=== PATIENT | female | born 1965 | race Two or more races ===

== ENCOUNTER → 2016-09-06 | Outpatient (CLI) | payer OTHER ==
[~2016-09-06] MED LIST: JENC0.35 PO; LISI-538 PO; hydrochlorothiazide OR
[2016-09-06 16:31] LABS: FREE T4 1.31 NG/DL (0.76-1.46)
== END ==
LOC: M LAB 15:43
PROVIDERS: ATTEND Hospitalist
DX: I15.9 Secondary hypertension, unspecified (principal)

== ENCOUNTER → 2016-11-09 | Outpatient (CLI) | payer OTHER ==
--- NOTE | 2016-11-10 07:27 | REP ---
THYROID ULTRASOUND: Real-time sonographic evaluation of the thyroid performed. Patient has had a prior left thyroidectomy in 2016. Right lobe measures 4.8 x 1.9 x 1.2 cm. Multiple tiny cysts are seen in the right lobe, approximately four, with maximum diameter of 3 mm. No solid nodule is seen. IMPRESSION: Status post left thyroidectomy. Approximately four tiny cysts are seen in the lower right thyroid. Signed by Usama Connor MD 11/10/2016 07:44 P
== END ==
LOC: M RAD 15:25
PROVIDERS: ATTEND Physician Assistant Medical
DX: E04.1 Nontoxic single thyroid nodule (principal); C73 Malignant neoplasm of thyroid gland

== ENCOUNTER → 2016-11-09 | Outpatient (CLI) | payer OTHER ==
[2016-11-09 16:21] LABS: FREE T4 1.05 NG/DL (0.76-1.46)
== END ==
LOC: M LAB 15:37
PROVIDERS: ATTEND Family Medicine
DX: E89.0 Postprocedural hypothyroidism (principal)

== ENCOUNTER → 2016-11-12 | Outpatient (CLI) | payer OTHER | LOC: M RAD 15:50 | PROVIDERS: ATTEND Family Medicine | DX: Z12.31 Encounter for screening mammogram for malignant neoplasm of breast (principal); Z53.9 Procedure and treatment not carried out, unspecified reason ==

== ENCOUNTER → 2017-07-10 | Outpatient (CLI) | payer OTHER | LOC: M RAD 16:37 | DX: E04.1 Nontoxic single thyroid nodule (principal) | CPT/HCPCS: 76536 ==

== ENCOUNTER → 2017-07-30 | Outpatient (CLI) | payer OTHER ==
[2017-07-30 17:13] LABS: FREE T4 1.12 NG/DL (0.76-1.46)
== END ==
LOC: M LAB 16:17
DX: Z85.850 Personal history of malignant neoplasm of thyroid (principal)
CPT/HCPCS: 84443

== ENCOUNTER → 2017-09-02 | Outpatient (CLI) | payer OTHER ==
[2017-09-02 14:53] LABS: HEMATOCRIT 37.9 % (36.0-47.0); HEMOGLOBIN 11.7 g/dl (12.0-16.0); MEAN CORPUSCULAR HGB CONC 30.9 g/dl (32.0-36.5); MEAN CORPUSCULAR VOLUME 77.7 fl (80.0-96.0); PLATELET COUNT, AUTOMATED 356 10^3/uL (150-450); RED BLOOD COUNT 4.88 10^6/uL (4.00-5.40); RED CELL DISTRIBUTION WIDTH 16.4 % (11.5-14.5); WHITE BLOOD COUNT 9.6 10^3/uL (4.0-10.0)
[2017-09-02 15:16] LABS: CONTROL LINE HCG INT CTR LINE PRESENT; HCG, SERUM QUALITATIVE NEGATIVE (NEGATIVE)
[2017-09-02 15:32] LABS: FOLLICLE STIMULATING HORMONE 11.7 mIU/mL; LUTEINIZING HORMONE 15.7 mIU/mL
== END ==
LOC: M LAB 14:35
DX: N85.2 Hypertrophy of uterus (principal)
CPT/HCPCS: 76856

== ENCOUNTER → 2017-11-19 | Outpatient (REF) | payer OTHER ==
[2017-11-21 14:13] LABS: HPV HYBRID CAPTURE II Negative (Negative)
== END ==
LOC: M LAB REF 19:19
DX: Z01.419 Encounter for gynecological examination (general) (routine) without abnormal findings (principal); Z11.51 Encounter for screening for human papillomavirus (HPV)

== ENCOUNTER → 2017-12-04 | Outpatient (REF) | payer OTHER | LOC: M SFHCLERA 13:37 | DX: L72.0 Epidermal cyst (principal); L82.1 Other seborrheic keratosis ==

== ENCOUNTER → 2017-12-25 | Outpatient (CLI) | payer OTHER | LOC: M RAD 12:28 | DX: E04.1 Nontoxic single thyroid nodule (principal); Z85.850 Personal history of malignant neoplasm of thyroid | CPT/HCPCS: 76536 ==

== ENCOUNTER → 2018-01-06 | Outpatient (CLI) | payer OTHER | LOC: M LAB 08:26 | DX: E89.0 Postprocedural hypothyroidism (principal) | CPT/HCPCS: 84443 ==

== ENCOUNTER → 2018-01-08 | Outpatient (CLI) | payer OTHER | LOC: M RAD 07:51 | DX: Z12.31 Encounter for screening mammogram for malignant neoplasm of breast (principal) | CPT/HCPCS: 77067 ==

== ENCOUNTER → 2018-01-08 | Outpatient (REF) | payer OTHER | LOC: M SFHCPLAZ 15:19 | DX: L02.212 Cutaneous abscess of back [any part, except buttock and flank] (principal) | CPT/HCPCS: 87077 ==

== ENCOUNTER → 2018-06-09 | Outpatient (CLI) | payer BC, SELFPAY | LOC: M RAD 17:42 | DX: Z85.850 Personal history of malignant neoplasm of thyroid (principal); E04.2 Nontoxic multinodular goiter | CPT/HCPCS: 76536 ==

== ENCOUNTER 2018-06-25 14:56 | Inpatient (IN) | payer BC ==
[~2018-06-25] VITALS: Ht 170.2 cm; Wt 76.8 kg
[2018-06-25] MEDS ORDERED: LEVO100T5 PO (15:09)
[2018-06-25] MEDS ORDERED: TRAZ-163 PO (15:09)
[2018-06-25] MEDS ORDERED: CHLO125TA (15:56)
--- NOTE | 2018-06-25 18:19 | REP ---
Clinical: Acute cerebrovascular accident . Comparison: 10/12/2015 . Findings: The ventricles, sulci, and cisterns are normal in position and appearance. Connor-white differentiation is maintained. No acute intracranial hemorrhage, mass/mass effect, pathology or trauma/injury. No evidence for acute infarction. No extra-axial fluid collection. Calvarium is intact. Paranasal sinuses and mastoid air cells are clear. Impression: Normal noncontrast head CT. No evidence for acute intracranial pathology or trauma/injury. Electronically Signed by Kevin Mcgrath MD 06/25/2018 06:11 P
--- NOTE | 2018-06-25 18:22 | REP ---
Clinical: Neck pain. Cerebrovascular accident. Technique: Axial noncontrast images from the skull base to the thoracic inlet with coronal and sagittal re-formations. Findings: Moderate multilevel degenerative changes include subtle end plate sclerosis with anterior osteophytes and minimal disc space narrowing predominantly involving C4-5 and C5-6. Alignment and lordosis maintained. No acute fracture / compression injury or subluxation. Posterior elements and spinous processes are intact. Spinal canal is patent. Paravertebral soft tissues are unremarkable. The patient appears to be status post left thyroidectomy. Impression: Moderate multilevel degenerative changes. No acute cervical spine pathology or trauma/injury. Electronically Signed by Kevin Mcgrath MD 06/25/2018 06:13 P
[2018-06-25 18:23] LABS: BASO % 0.5 % (0.0-1.0); EOS # 0.1 10^3/uL (0.0-0.50); EOS % 0.9 % (0.0-3.0); HEMATOCRIT 44.7 % (36.0-47.0); HEMOGLOBIN 14.5 g/dl (12.0-15.5); LYMPH % 34.7 % (24.0-44.0); MEAN CORPUSCULAR HEMOGLOBIN 27.4 pg (27.0-33.0); MEAN CORPUSCULAR HGB CONC 32.4 g/dl (32.0-36.5); MEAN CORPUSCULAR VOLUME 84.5 fl (80.0-96.0); MONO # 0.6 10^3/uL (0.0-0.8); MONO % 7.3 % (0.0-5.0); NEUTROPHILS # 4.8 10^3/uL (1.8-7.7); NEUTROPHILS % 56.2 % (36.0-66.0); PLATELET COUNT, AUTOMATED 327 10^3/uL (150-450); RED BLOOD COUNT 5.29 10^6/uL (4.00-5.40); WHITE BLOOD COUNT 8.5 10^3/uL (4.0-10.0)
[2018-06-25 18:41] LABS: INR 0.94; PARTIAL THROMBOPLASTIN TIME 26.2 SECONDS (25.4-37.6); PROTHROMBIN TIME 12.6 SECONDS (12.1-14.4)
[2018-06-25 18:58] LABS: BLOOD UREA NITROGEN 11 MG/DL (7-18); CALCIUM LEVEL 9.4 MG/DL (8.5-10.1); CARBON DIOXIDE LEVEL 30 MEQ/L (21-32); CHLORIDE LEVEL 101 MEQ/L (98-107); CPK CREATINE PHOSPHOKINASE 110 U/L (26-192); CREATININE FOR GFR 0.88 MG/DL (0.55-1.30); FREE T4 1.21 NG/DL (0.76-1.46); GLOMERULAR FILTRATION RATE > 60.0 (>51); GLUCOSE, FASTING 84 MG/DL (70-100); POTASSIUM SERUM 3.5 MEQ/L (3.5-5.1); SODIUM LEVEL 138 MEQ/L (136-145); TROPONIN I 0.05 NG/ML (< 0.10)
[2018-06-25] MEDS ORDERED: CHLO25TA PO (20:04)
[2018-06-25] MEDS ORDERED: REFR0.5D8 OU (20:16)
[2018-06-25] MEDS: traZODone 50 MG TAB PO SCH (21:00)
[2018-06-25] MEDS ORDERED: SIMVASTATIN 20 MG TAB PO ONE (21:15)
[2018-06-25] MEDS ORDERED: ASPIRIN 81 MG CHEW TABLET PO ONE (21:15)
[2018-06-25] MEDS ORDERED: BISACODYL 5 MG TAB PO PRN (21:45)
[2018-06-25] MEDS ORDERED: ACETAMINOPHEN TAB 650MG DOSE (2X325MG) PO PRN (21:45)
[2018-06-25] MEDS ORDERED: BISACODYL 10 MG SUPP PR PRN (21:45)
--- NOTE | 2018-06-25 22:14 | HPEPDOC ---
[facility] Medical History & Physical Date of Admission Jun 25, 2018 Attending Physician: FLORECITA BUCIO MD History and Physical CHIEF COMPLAINT: [Uncontrollable blood pressure, left arm paresthesia and blurring vision for 5 days] HISTORY OF PRESENT ILLNESS: [52-year-old female with significant past history of hypertension, hypothyroidism, anxiety and insomnia, migraine who presented complaining of uncontrolled blood pressure systolic 140 (unusual for her), left arm paresthesia and blurry vision described as being foggy for the past 5 days. Patient states that she had intermittent nausea without vomiting on past Saturday and today. Patient admits to eating a ham for holiday. Patients pleural effusion slowly resolving. Neck pain and left arm paresthesias still present. Blood pressure slowly improved in the emergency room. Patient was evaluated in emergency room, ER physician suspected TIA CVA therefore consulted Dr. Coronado. Neurologist recommended admission for aspirin, statin, further evaluation and MRI of the brain and neck. Patient being admitted for further evaluation for TIA/CVA. But suspect patient may have hypertensive urgency. Review system: 12 point review systems negative other than those described in HPI Past medical history: Hypertension, hypothyroidism, anxiety/insomnia, migraine, neck pain Surgical history: Partial thyroidectomy, 3, finger surgery with screw placement Social history: Patients most recent yesterday, drinks occasionally last drink was last week, denies any drug abuse Family medical history: Does not know anything about her fathers medical history, mother has stomach cancer history, siblings relatively healthy up of the kidney disease ALLERGIES: Please see below. HOME MEDICATIONS: Please see below. PHYSICAL EXAMINATION: VITAL SIGNS: Please see below GENERAL APPEARANCE: Resting comfortably HEENT: Normocephalic, PERRLA, Mucous moist, CARDIOVASCULAR: S1,S2, pulse present, regularly, regular, no obvious murmur LUNGS: Equal air entry b/l, no wheezes or crackle ABDOMEN: Soft, BS present, no tenderness, no guarding GENITOURINARY: No [place] EXTREMITIES: B/L no edema, capillary refill present SKIN: Warm, No fever NEUROLOGICAL: Cranial nerves grossly intact, Patient awake alert oriented, follows command without difficulty, answers multiple questions difficulty, normal gaze, no visual loss but complains of foggy vision that is improving, no facial paralysis, no upper and lower extremity motor drift bilaterally, no ataxia, sensory intact, no aphasia, no dysarthria and no neglect PSYCHIATRIC: Normal mood and affect for current situation, family at the bedside LABORATORY DATA: See below. IMAGING: [CT of the head: Normal noncontrast head CT. No evidence for acute intracranial pathology or trauma/injury. CT of cervical spine: Moderate multilevel degenerative changes: No acute cervical spine pathology or trauma/injury. CXR: No cardiac megaly, and no consolidation or infiltrate. Please follow up with official reading by radiology.] MICROBIOLOGY: Please see below. Assessment and plan: 52-year-old female was in a few past medical history of hypertension, hypothyroidism, anxiety/insomnia, migraine who presents complaining of 5 days worth of elevated blood pressure, left arm paresthesia and blurred vision. ER felt patient may have TIA/CVA and Dr. Coronado was consulted and recommended admission for further evaluation and monitoring along with aspirin and statin therapy. Patients foggy vision resolving improving with blood pressure improvement. Patient admitted for hypertensive urgency and TIA/CVA workup. Hypertension urgency Patient symptom such as blurry vision improving with better blood pressure control, and patient admits increase in salt consumption during the holiday Judiciously resume antihypertensive medication Further workup for TIA and CVA as below, and if MRI negative for ischemic stroke considering utilizing IV Lasix for better blood pressure control Possible TIA/CVA Neuro checks Aspirin, statin Lipid profile Telemetry, serial cardiac enzyme, echocardiogram MRI and MRA of the brain and the neck Further recommendation as per Dr. Coronado Blood pressure monitoring, if MRI positive for ischemic stroke hold blood pressure medication for permissive hypertension Nicotine use Nicotine patch prn, smoking cessation advise Hypothyroidism TSH level Resume home meds Anxiety/insomnia Resume trazodone DVT prophylaxis with heparin subcutaneous Vital Signs Vital Signs Date Time Temp Pulse Resp B/P (MAP) Pulse Ox O2 Delivery O2 Flow Rate FiO2 06/25/18 21:30 141/103 (116) 06/25/18 21:15 72 99 06/25/18 19:16 16 Room Air 06/25/18 14:57 97.0 Laboratory Data Labs 24H Laboratory Tests 2 06/25/18 17:58: Immature Granulocyte % (Auto) 0.4, White Blood Count 8.5, Red Blood Count 5.29, Hemoglobin 14.5, Hematocrit 44.7, Mean Corpuscular Volume 84.5, Mean Corpuscular Hemoglobin 27.4, Mean Corpuscular Hemoglobin Concent 32.4, Red Cell Distribution Width 13.2, Platelet Count 327, Neutrophils (%) (Auto) 56.2, Lymphocytes (%) (Auto) 34.7, Monocytes (%) (Auto) 7.3H, Eosinophils (%) (Auto) 0.9, Basophils (%) (Auto) 0.5, Neutrophils # (Auto) 4.8, Lymphocytes # (Auto) 3.0, Monocytes # (Auto) 0.6, Eosinophils # (Auto) 0.1, Basophils # (Auto) 0.0, Nucleated Red Blood Cells % (auto) 0.0, Prothrombin Time 12.6, Prothromb Time International Ratio 0.94, Activated Partial Thromboplast Time 26.2, Anion Gap 7L, Glomerular Filtration Rate > 60.0, Blood Urea Nitrogen 11, Creatinine 0.88, Sodium Level 138, Potassium Level 3.5, Chloride Level 101, Carbon Dioxide Level 30, Calcium Level 9.4, Total Creatine Kinase 110, Creatine Kinase MB 1.0, Creatine Kinase MB Relative Index 1.00, Troponin I 0.05, Thyroid Stimulating Hormone (TSH) 2.830, Free Thyroxine 1.21 CBC/BMP Laboratory Tests 06/25/18 17:58 Red Blood Count 5.29, Mean Corpuscular Volume 84.5, Mean Corpuscular Hemoglobin 27.4, Mean Corpuscular Hemoglobin Concent 32.4, Red Cell Distribution Width 13.2, Neutrophils (%) (Auto) 56.2, Lymphocytes (%) (Auto) 34.7, Monocytes (%) (Auto) 7.3 H, Eosinophils (%) (Auto) 0.9, Basophils (%) (Auto) 0.5, Neutrophils # (Auto) 4.8, Lymphocytes # (Auto) 3.0, Monocytes # (Auto) 0.6, Eosinophils # (Auto) 0.1, Basophils # (Auto) 0.0, Calcium Level 9.4, Total Creatine Kinase 110 Home Medications Scheduled Chlorthalidone (Chlorthalidone) 25 Mg Tab, 12.5 MG PO DAILY Levothyroxine Sodium (Synthroid) 100 Mcg Tab, 100 MCG PO DAILY Lisinopril (Lisinopril) 20 Mg Tab, 20 MG PO DAILY Trazodone HCl (Trazodone HCl) 100 Mg Tab, 50 MG PO QHS Scheduled PRN Carboxymethylcellulose Sodium (Refresh Tears) 0.5 % Eladio, 1 DROP OU TID PRN for DRY EYES Allergies Coded Allergies: Iodine (Unverified Allergy, Severe, THROAT CLOSING, 06/25/18) Shellfish Allergy (Unverified Allergy, Severe, THROAT CLOSING, 06/25/18) Eggs or Egg-derived Products (Unverified Allergy, Intermediate, N/V, 06/25/18) Sulfamethoxazole w/Trimethoprim (Unverified Allergy, Mild, HIVES, 06/25/18) LISS GARZA MD Jun 25, 2018 22:14
[2018-06-26] MEDS ORDERED: NICOTINE 7 MG/24 HR TRANSDERMAL TD PRN (00:15)
--- NOTE | 2018-06-26 01:10 | REPVR ---
EXAM: MR Head Without Contrast EXAM DATE/TIME: 06/25/2018 9:38 PM CLINICAL HISTORY: 52 years old, female; Signs and symptoms; Malaise or fatigue; Additional info: TIA TECHNIQUE: MR of the head without contrast. COMPARISON: MRA BRAIN W/O CONTRAST 06/25/2018 11:42 PM FINDINGS: No abnormal restriction of diffusion to indicate acute CVA. Midline structures and cerebellar tonsillar position appear normal. Ventricles, cisterns and sulci are symmetric and normal for age. No intracranial mass, midline shift or abnormal extra-axial fluid. No acute intracranial hemorrhage. Minimal punctate foci of white matter signal on FLAIR and T2 sequences. Optic chiasm and pituitary infundibulum appear normal. Normal vascular flow voids in major intracranial arteries and dural venous sinuses. Paranasal sinuses are clear. Mastoid air cells are normally aerated. Optic globes and orbits are unremarkable. IMPRESSION: Essentially unremarkable noncontrast MRI of the brain. Minimal punctate foci of subcortical white matter signal on flair and T2, within frontal lobes. This is likely related to chronic small vessel ischemic change Electronically signed by: Amandeep Nam On 06/26/2018 01:10:12 AM
--- NOTE | 2018-06-26 01:12 | REPVR ---
EXAM: MR Angiogram Head Without Contrast, Arteries EXAM DATE/TIME: 06/25/2018 9:38 PM CLINICAL HISTORY: 52 years old, female; Signs and symptoms; Weakness; Additional info: TIA TECHNIQUE: MR angiogram head without contrast. Exam focused on the arteries. COMPARISON: CT Head without contrast 06/25/2018 5:52 PM FINDINGS: Anterior circulation: Normal flow signal and luminal caliber in the petrous, cavernous and supraclinoid internal carotid arteries. Normal appearance of the anterior cerebral artery branches and middle cerebral artery branches through the MCA trifurcations. No occlusion, high-grade focal stenosis or dissection. No aneurysm. Posterior circulation: Diminutive distal vertebral arteries, with patent diminutive caliber basilar artery, and normal superior cerebellar and posterior cerebral arteries. No occlusion, high-grade stenosis or aneurysm. Large bilateral posterior communicating arteries supply the majority of bilateral posterior cerebral artery flow IMPRESSION: Unremarkable MR angiogram of the [place] and intracranial vertebrobasilar system. Diminutive distal vertebral and basilar arteries, with maintenance of intracranial flow signal and luminal caliber of the posterior cerebral arteries secondary to large bilateral posterior communicating arteries Electronically signed by: Amandeep Nam On 06/26/2018 01:12:25 AM
[2018-06-26 02:00] LABS: CK-MB VALUE MASS < 1.0 NG/ML (<3.6); CPK CREATINE PHOSPHOKINASE 87 U/L (26-192); MB/CK RELATIVE INDEX 1.15 (< OR =4); TROPONIN I 0.04 NG/ML (< 0.10)
[2018-06-26] MEDS: LEVOTHYROXINE 100MCG TABLET (0.1MG) PO SCH (06:34)
[2018-06-26] MEDS: HEPARIN SOD (PORCINE) 5000 UNITS/ML VIAL SC SCH ×3 (06:34→21:17)
[2018-06-26 06:50] LABS: HEMATOCRIT 41.5 % (36.0-47.0); HEMOGLOBIN 13.4 g/dl (12.0-15.5); MEAN CORPUSCULAR HEMOGLOBIN 26.9 pg (27.0-33.0); MEAN CORPUSCULAR HGB CONC 32.3 g/dl (32.0-36.5); MEAN CORPUSCULAR VOLUME 83.3 fl (80.0-96.0); PLATELET COUNT, AUTOMATED 288 10^3/uL (150-450); RED BLOOD COUNT 4.98 10^6/uL (4.00-5.40); WHITE BLOOD COUNT 6.9 10^3/uL (4.0-10.0)
[2018-06-26 07:26] LABS: BLOOD UREA NITROGEN 10 MG/DL (7-18); CALCIUM LEVEL 8.8 MG/DL (8.5-10.1); CARBON DIOXIDE LEVEL 28 MEQ/L (21-32); CHLORIDE LEVEL 101 MEQ/L (98-107); CHOLESTEROL LEVEL 235 MG/DL (<200); CREATININE FOR GFR 0.88 MG/DL (0.55-1.30); GLOMERULAR FILTRATION RATE > 60.0 (>51); GLUCOSE, FASTING 109 MG/DL (70-100); HDL CHOLESTEROL 44 MG/DL (>40); LDL CHOLESTEROL 155 MG/DL (<100); NON-HDL-C 191 MG/DL; POTASSIUM SERUM 3.2 MEQ/L (3.5-5.1); SODIUM LEVEL 137 MEQ/L (136-145); TRIGLYCERIDES LEVEL 178 MG/DL (<150)
[2018-06-26] MEDS ORDERED: ASPIRIN 81 MG CHEW TABLET PO SCH (09:00)
[2018-06-26] MEDS: ASPIRIN 81 MG ENTERIC TAB PO SCH (09:26)
[2018-06-26] MEDS: LISINOPRIL 20 MG TAB PO SCH (09:26)
[2018-06-26] MEDS ORDERED: POTASSIUM CHLORIDE 10 MEQ SR TABLET PO ONE (09:30)
--- NOTE | 2018-06-26 09:38 | REP ---
Clinical: Cerebrovascular accident . Comparison: None . Findings: The mediastinum and cardiac silhouette are stable and within normal limits for portable technique. The lung burgos are clear without acute consolidation, effusion, or pneumothorax. Skeletal structures are intact. Impression: No acute cardiopulmonary process appreciated. Electronically Signed by Kevin Mcgrath MD 06/25/2018 06:21 P
--- NOTE | 2018-06-26 09:41 | IPN ---
DATE: 06/26/2018 ATTENDING PHYSICIAN: Dr. Kimberlee Dale PRIMARY CARE PROVIDER: Dr. Elsa Retana - [facility] clinic. CHIEF COMPLAINT: Transient ischemic attack (TIA) versus migraine. HISTORY: Mindy Beck is a 52-year-old admitted with an acute neurologic event where she was having left arm paresthesias, blurry vision and blood pressure elevated beyond her baseline. She says that for several days she has felt "foggy." Her vision has felt blurry without diplopia or focal visual deficits. Her left arm had some numbness associated with it and she had trouble finding the right words to say (she did not have speech substitution or dysarthria, but she felt that she had to concentrate to say the correct words). She was admitted last night to the hospitalist service. I went to round on her this morning. She had eloped from the emergency room. They were going to call a code [place] when she returned from the cafeteria with her breakfast. My evaluation was delayed for her to have her breakfast, but then we proceeded. At this time, she feels that she is "50%" back to baseline. She still feels foggy, but her arm has less numbness. PAST HISTORY: Shows migraines headaches when she was younger. She has hypertension. History of chronic left neck pain. Left thyroid lobectomy for presumed thyroid cancer, 12/2015. She has hyperlipidemia. Her atherosclerotic cardiovascular disease risk was 19% when last calculated almost 3 years ago. HOME MEDICATIONS: - Lupron injections - trazodone 100 mg at bedtime (trazodone dose is either 50 or 100 mg - both are listed on her current medication list from the office.) - lisinopril 20 mg daily - chlorthalidone 25 mg daily - Synthroid 100 mcg daily PHYSICAL EXAMINATION: She is resting comfortably in bed. Feels neurologically intact. Her blood pressure is 175/105, pulse is 60-70. She has no facial droop or weakness. Extraocular movements are intact without nystagmus. Speech is fluent, but somewhat slow with appropriate pronunciation. Lungs clear. Heart regular rhythm, no murmur. Abdomen soft, nontender, no masses. No peripheral edema. Neurological exam shows cranial nerves II through XII to be intact. 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 Lower extremity strength is normal, plantar and dorsiflexion of the feet, quadriceps and calves. Her gait is apparently normal if she could walk to the cafeteria and back after disconnecting herself from her monitor and blood pressure cuff. LABS: White count 5.9, hemoglobin 13.4, platelets 288, sodium 132, potassium 3.2, BUN 10, creatinine 0.8, glucose 109, cholesterol is 253, LDL 155. TSH and free T4 both normal. PT/PTT normal. MRI of the brain shows small vessel disease. No infarcts. MRA unremarkable. CT scan of the cervical spine showed moderate multilevel degenerative changes, nothing acute. Chest x-ray showed no active disease. IMPRESSION: 1. Acute neurologic event, probably cerebral vasospasm related to hypertensive urgency. This seems to be improving. She is being admitted to a monitored bed. Neurology has been consulted. She has been started on atorvastatin 20 mg daily, maintained on her chlorthalidone 12.5 mg daily, lisinopril 20 mg daily. I have ordered hydralazine as needed for blood pressure greater than 160/110. Awaiting for neurology to see her. Carotid imaging has been ordered as well as echocardiogram. 2. Hyperlipidemia. She has been started on moderate intensity atorvastatin 20 mg daily. That should be appropriate as she has not had an actual ischemic event. 3. Hypothyroidism. Continue current dose of levothyroxine 100 mcg daily. 4. History of sleep disorder/depression. Continue trazodone 50 mg at bedtime.
[2018-06-26 10:39] LABS: CK-MB VALUE MASS < 1.0 NG/ML (<3.6); CPK CREATINE PHOSPHOKINASE 94 U/L (26-192); MB/CK RELATIVE INDEX 1.06 (< OR =4); TROPONIN I 0.03 NG/ML (< 0.10)
[2018-06-26] MEDS: CHLORTHALIDONE 12.5MG PER 1/2 TABLET PO SCH (11:12)
[2018-06-26] MEDS ORDERED: PROHANCE 279.3MG/ML 5ML VIAL (A9576) As Ordered ONE (12:08)
[2018-06-26] MEDS ORDERED: PROHANCE 279.3MG/ML 15ML VIAL (A9576) As Ordered ONE (12:09)
--- NOTE | 2018-06-26 13:08 | ECGEPIP ---
Stationary ECG Study [facility] ED Test Date: 2018-06-25 Pat Name: KATHI OLIVEIRA Department: Room: [place] [address] Gender: F Trimmer Loader: adriano : 1965 Requested By: JOE Yañez Order Number: [id number] Reading MD: Iglesia Gallagher Measurements Intervals [place] Rate: 65 P: 38 MS: 177 QRS: 28 QRSD: 103 T: 49 QT: 415 QTc: 434 Interpretive Statements SINUS RHYTHM WITH SINUS ARRHYTHMIA INFERIOR MYOCARDIAL INFARCTION, PROBABLY OLD WITH POSTERIOR EXTENSION BASELINE ARTIFACT AFFECTS INTERPRETATION SIMILAR TO 01/04/16 Electronically Signed On 06-26-2018 13:07:53 EST by Iglesia Gallagher
[2018-06-26] MEDS: **hydrALAZINE** 10 MG TAB PO SCH ×2 (13:17→18:00)
--- NOTE | 2018-06-26 13:36 | REP ---
MR angiography of the carotids without and with IV gadolinium: History: TIA. Gadolinium enhancement dose: 25 mL of intravenous ProHance. MR angiographic findings: There is tortuosity of the great vessels. Great vessel origins from the aorta are otherwise unremarkable. The internal carotid arteries are somewhat tortuous but widely patent bilaterally. Vertebral arteries are patent and symmetric. There is minimal plaquing at the carotid bulbs bilaterally. The proximal internal carotid arteries are markedly tortuous on both sides but no high-grade stenosis is seen. Impression: No significant stenosis. The proximal internal carotid arteries are tortuous bilaterally. Electronically Signed by Nathanael Hughes MD 06/26/2018 06:17 P
[2018-06-26 16:45] VITALS: BP 132/86
[2018-06-26] MEDS ORDERED: SLF 3 ML SYR IV PRN (17:30)
[2018-06-26 18:32] LABS: CK-MB VALUE MASS < 1.0 NG/ML (<3.6); CPK CREATINE PHOSPHOKINASE 99 U/L (26-192); MB/CK RELATIVE INDEX 1.01 (< OR =4); TROPONIN I 0.02 NG/ML (< 0.10)
[2018-06-26 20:00] VITALS: BP 134/80
[2018-06-26] MEDS ORDERED: ATORVASTATIN 20 MG TAB PO SCH (21:00)
[2018-06-26] MEDS: traZODone 50 MG TAB PO SCH (21:17)
[2018-06-26] MEDS: SLF 3 ML SYR IV SCH (21:50)
[2018-06-27 00:44] VITALS: BP 130/60
[2018-06-27 04:00] VITALS: BP 123/75
[2018-06-27 05:39] LABS: HEMATOCRIT 40.2 % (36.0-47.0); MEAN CORPUSCULAR HEMOGLOBIN 27.4 pg (27.0-33.0); MEAN CORPUSCULAR HGB CONC 32.3 g/dl (32.0-36.5); MEAN CORPUSCULAR VOLUME 84.6 fl (80.0-96.0); PLATELET COUNT, AUTOMATED 282 10^3/uL (150-450); RED BLOOD COUNT 4.75 10^6/uL (4.00-5.40); WHITE BLOOD COUNT 6.4 10^3/uL (4.0-10.0)
[2018-06-27] MEDS: SLF 3 ML SYR IV SCH (06:00)
[2018-06-27] MEDS: **hydrALAZINE** 10 MG TAB PO SCH ×2 (06:00)
[2018-06-27] MEDS: LEVOTHYROXINE 100MCG TABLET (0.1MG) PO SCH (06:07)
[2018-06-27 06:08] LABS: BLOOD UREA NITROGEN 17 MG/DL (7-18); CALCIUM LEVEL 8.7 MG/DL (8.5-10.1); CARBON DIOXIDE LEVEL 25 MEQ/L (21-32); CHLORIDE LEVEL 105 MEQ/L (98-107); CREATININE FOR GFR 0.87 MG/DL (0.55-1.30); GLOMERULAR FILTRATION RATE > 60.0 (>51); GLUCOSE, FASTING 121 MG/DL (70-100); POTASSIUM SERUM 3.4 MEQ/L (3.5-5.1); SODIUM LEVEL 137 MEQ/L (136-145)
[2018-06-27] MEDS: HEPARIN SOD (PORCINE) 5000 UNITS/ML VIAL SC SCH (06:08)
[2018-06-27 07:53] VITALS: BP 111/76
[2018-06-27] MEDS ORDERED: POTASSIUM CHLORIDE 10 MEQ SR TABLET PO SCH (09:00)
[2018-06-27 09:16] VITALS: BP 111/76
[2018-06-27] MEDS: CHLORTHALIDONE 12.5MG PER 1/2 TABLET PO SCH (09:16)
[2018-06-27] MEDS: LISINOPRIL 20 MG TAB PO SCH (09:16)
[2018-06-27] MEDS: ASPIRIN 81 MG ENTERIC TAB PO SCH (09:16)
[2018-06-27] MEDS ORDERED: KLOR10TA76 PO (09:37)
[2018-06-27] MEDS ORDERED: ASPI81TAEC PO (09:37)
[2018-06-27] MEDS ORDERED: ATOR1TAB21 PO (09:37)
--- NOTE | 2018-06-27 09:43 | REP ---
Clinical: Hypertension and chronic medical renal disease. Technique: Connor scale and color Doppler evaluation of the kidneys and renal vasculature using curved array transducer. Findings: Right kidney measures 13.3 x 6.3 x 4.2 cm and demonstrates extrarenal pelvis along with suggestions for partial duplication and is without hydronephrosis, definite nephrolithiasis, cystic or renal mass lesion. 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 Color Doppler evaluation of the renal vasculature demonstrates elevated proximal renal artery velocity with associated elevated renal aortic ratio. Remainder of the Doppler evaluation demonstrates relatively normal arterial wave patterns, velocities, renal aortic ratios, resistive indices and the acceleration time. 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 Right Kidney: Peak arterial velocity: 266.0 cm/sec . Renal aortic ratio: 2.8 . Resistive indices: 0.5 - 0.6 . Acceleration times: 0.02 - 0.04 . Left kidney: Peak arterial velocity: 169.8 cm/sec . Renal aortic ratio: 1.8 . Resistive indices: 0.6 - 0.8 . Acceleration times: 0.03 - 0.05 . Impression: 1. 2 cm left renal cyst. Kidneys without hydronephrosis. 2. 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 3. Incidental abdominal findings include hepatic steatosis and cholelithiasis. Electronically Signed by Kevin Mcgrath MD 06/27/2018 09:34 A
--- NOTE | 2018-06-27 10:50 | CR ---
DATE OF CONSULTATION: 06/26/2018 REFERRING PHYSICIAN: Dr. Stacey Ivory REASON FOR CONSULTATION: Uncontrolled hypertension, left arm numbness, blurred vision. HISTORY OF PRESENT ILLNESS: Mindy Beck is a 52-year-old woman with history of hypertension, anxiety, insomnia and migraines, who came to [facility] due to 5-6 days history of left arm numbness, tingling and neck pain. She also felt blurred vision and off balance sensation. She felt lightheadedness and felt as if she was walking on ice when there was no ice. She felt blurred vision in both eyes without loss of vision. Neck pain would radiate down her left arm and up towards her left side of head. She denies any back pain. She denies any seizures, dysphagia, dysarthria, diplopia or urinary incontinence. She was found to have blood pressure 167/104. Her blood pressure is now better with medications. She feels overall her symptoms are better. She still feels left arm numbness, tingling and left side of neck pain. The patient has history of off and on migraines. She denies any falls or loss of consciousness or head injuries. She denies any loss of consciousness. DIAGNOSTIC STUDIES: Her MRI scan of brain showed minimal small vessel ischemic disease of brain. MRA brain and neck were within normal limits. CT scan of cervical spine showed multilevel degenerative disk disease. Her CBC and metabolic profile were within normal limits. Her LDL was 155, total cholesterol 235 and triglycerides 178. Her TSH was 2.8. PAST MEDICAL HISTORY: Hypertension. Dyslipidemia. Hypothyroidism. Migraines. Anxiety. Insomnia. CURRENT MEDICATIONS: - chlorthalidone 12.5 mg p.o. daily - levothyroxine 100 mcg p.o. daily - lisinopril 20 mg p.o. daily - trazodone 100 mg, half or one tablet p.o. q.h.s. - aspirin 81 mg p.o. daily - Lipitor 20 mg p.o. daily - hydralazine 10 mg p.o. daily ALLERGIES: 1. IODINE. 2. BACTRIM. 3. Shellfish. 4. Eggs. SOCIAL HISTORY: The patient smokes tobacco. She denies illicit drugs. FAMILY HISTORY: Noncontributory. REVIEW OF SYSTEMS: All systems were reviewed and found to be noncontributory except as mentioned in the history present illness. PHYSICAL EXAMINATION: Blood pressure in the hospital reached up to 178/97, 167/104. Current blood pressure is 132/86, 97% saturation on room air. Temperature 98.5, pulse 86, respiratory rate 18. HEART: Regular rate and rhythm. LUNGS: Clear to auscultation. ABDOMEN: Soft, nontender, nondistended. No pedal edema. No musculoskeletal abnormalities or rash. No signs of meningeal irritation. No tremor, dysmetria or ataxia. The patient is awake, alert, oriented to place, person and time. Normal speech comprehension and repetition. Extraocular muscles are intact. No facial weakness. Tongue and uvula are midline. Visual burgos are full to confrontation. Pupils are 5 mm bilaterally reactive to light. 5/5 strength in all four extremities. Deep tendon flexes 2+ throughout. Normal sensation throughout. Gait is normal. There is no dysmetria or ataxia. [id number] testing is within normal limits. Recent and distant memory is intact. ASSESSMENT: 1. Hypertensive urgency. 2. Chronic neck pain due to moderate multilevel degenerative disk disease of cervical spine seen on CT scan of cervical spine. 3. Possible left cervical radiculopathy. 4. Dyslipidemia and uncontrolled hypertension. 5. Transient ischemic attack is unlikely due to persistent symptoms for 5-6 days. PLAN: 1. Keep systolic blood pressure below 130 and diastolic blood pressure below 90. 2. EMG nerve conduction study of left arm as outpatient. 3. Lipitor 20 mg p.o. daily and continue appropriate management of her hypertension. 4. Follow with our office in 2-4 weeks after hospital discharge.
--- NOTE | 2018-06-27 21:22 | ECHO ---
DATE OF PROCEDURE: 06/26/2018 REFERRING PHYSICIAN: Stacey Ivory MD PATIENT LOCATION: ED, room 16 REASON FOR ECHOCARDIOGRAM: Transient ischemic attack (TIA). 2D MEASUREMENTS: IVS: 1.1 cm LV: 4.2 cm LVPW: 1.1 cm LA: 3.3 cm Aorta: 3.1 cm IVC: 1.4 cm DOPPLER MEASUREMENTS: Peak velocity across the aortic valve: 1.2 m/s Peak velocity across the LVOT: 1.2 m/s Mitral E: 0.61, Mitral A: 0.63, with a ratio of 1.0 Maximum tricuspid valve velocity: 2.1 m/s 2D COMMENTS: 1. Normal left ventricular size, wall thickness and normal global left ventricular systolic function. The estimated left ventricular systolic ejection fraction is 60 to 65%. 2. Normal left atrium. Normal right atrium and right ventricle. 3. The atrial septum appeared to be normal without evidence of defect or shunt. 4. Normal aortic root. 5. No pericardial effusion seen. 6. The aortic valve appeared to be normal. Mildly calcified mitral annulus with normal anterior mitral valve leaflet motion. Normal tricuspid valve and pulmonic valve. The proximal pulmonary artery branches were not well visualized. 7. The inferior vena cava was normal in size, central venous pressure is most likely normal. DOPPLER: It detects trace tricuspid regurgitation. The calculated pulmonary artery systolic pressure was normal. Assessment of the left ventricular diastolic function was normal. IMPRESSION: 1. Normal global left ventricular systolic and diastolic function. 2. No significant valvular abnormalities, but trace tricuspid regurgitation. Calculated pulmonary artery systolic pressure was normal. MTDD
--- NOTE | 2018-07-22 19:15 | DSES ---
DATE OF ADMISSION: 06/25/2018 DATE OF DISCHARGE: 06/27/2018 PRINCIPAL DIAGNOSIS: Hypertensive urgency with acute neurologic probably cerebral vasospasm. SECONDARY DIAGNOSES: Hyperlipidemia. Hypothyroidism. Sleep disorder. Depression. HISTORY: Mindy Beck was admitted with acute neurologic event. Details in history and physical on admission. HOSPITAL COURSE: Admitted to the telemetry bed. Blood pressure came down nicely. Neurological symptoms resolved. She was seen by neurology. They recommended keeping pressure below 130/90. Electromyogram (EMG) of left arm as an outpatient, atorvastatin and followup in their office after discharge. The patient was discharged on 06/27/2018. Neurologic exam was nonfocal. SIGNIFICANT LABS: Lab work day of discharge: CBC, BMP which were unremarkable. Cardiac enzymes were negative. Lipid profile showed an LDL of 155. HDL 44. Renal ultrasound showed 2 cm left renal cyst. 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 Will need outpatient followup. Carotid ultrasound showed no significant lesions. MRI showed no stroke, just small vessel disease. DISPOSITION: Patient was discharged in improved and stable condition. [facility] who [facility] her primary care provider in a week. MEDICATIONS: - atorvastatin 20 mg daily - potassium chloride 40 mEq daily for 2 weeks - she was continued on chlorthalidone 12.5 mg - levothyroxine 100 mcg daily - trazodone 50 mg at bedtime - lisinopril 20 mg daily Regular low salt diet. Activity as tolerated. Advised to followup with her primary care provider concerning the renal artery finding. It might need serial imaging. (Her blood pressure came down very quickly with minimal intervention, mostly pain control for her neck problems so I am not sure that the 60% stenosis is the causative factor of her recent blood pressure issues. She will need a lipid profile and a liver profile in three months.
== END 2018-06-27 11:04 | disposition home or self-care (01) | DRG 47 ==
LOC: M ED 14:56 → M ED INP 21:38 → M PCU 06-26 16:47
PROVIDERS: ADMIT Internal Medicine; ATTEND Family Medicine
DX: I67.848 Other cerebrovascular vasospasm and vasoconstriction (principal); I16.0 Hypertensive urgency; E78.5 Hyperlipidemia, unspecified; E03.9 Hypothyroidism, unspecified; F32.9 Major depressive disorder, single episode, unspecified; Z79.899 Other long term (current) drug therapy; G47.00 Insomnia, unspecified; Z88.2 Allergy status to sulfonamides; Z91.012 Allergy to eggs; Z91.013 Allergy to seafood; Z88.8 Allergy status to other drugs, medicaments and biological substances; G43.909 Migraine, unspecified, not intractable, without status migrainosus

== ENCOUNTER → 2019-01-14 | Outpatient (CLI) | payer BC ==
[~2019-01-14] MED LIST changes: +ASPI81TAEC PO; +ATOR1TAB21 PO; +CHLO125TA; +CHLO25TA PO; +KLOR10TA76 PO; +LEVO100T5 PO; +REFR0.5D8 OU; +TRAZ-163 PO
--- NOTE | 2019-01-14 12:36 | REP ---
THYROID ULTRASOUND: Real-time sonographic evaluation of the right lobe thyroid is performed in this patient who has had a prior left thyroid lobectomy. Comparison is made with prior study of 06/09/2018. Right lobe measures 4.8 x 1.9 x 1.5 cm. The size is essentially unchanged. Once again there are a few tiny cysts seen in the right mid to lower lobe. Largest is 4 mm in the mid aspect. No suspicious solid nodule is seen. No mass is seen in the left thyroid bed. IMPRESSION: No significant change compared to the prior study. A few tiny cysts are again seen in the right lobe. No solid mass in the right lobe or left thyroid bed. Electronically Signed by Usama Connor MD 01/16/2019 12:56 P
== END ==
LOC: M RAD 10:29
PROVIDERS: ATTEND Physician Assistant Medical
DX: Z85.850 Personal history of malignant neoplasm of thyroid (principal)

== ENCOUNTER → 2019-07-27 | Outpatient (REF) | payer BC, OTHER ==
[~2019-07-27] MED LIST changes: -TRAZ-163 PO; +TRAZ-257 PO
== END ==
LOC: M SFHCWAGY 14:26
PROVIDERS: ATTEND Specialist
DX: Z12.4 Encounter for screening for malignant neoplasm of cervix (principal)

== ENCOUNTER → 2019-08-11 | Outpatient (CLI) | payer OTHER ==
--- NOTE | 2019-08-11 10:19 | REP ---
Clinical: Myomatous uterus. Technique: Transabdominal obstetrical ultrasound with color Doppler evaluation of the ovaries. Comparison: 09/02/2017 Findings: Bladder is collapsed. Heterogeneous anteverted uterus measures 11.6 x 8.5 x 8.1 cm. Endometrial complex measures 5 mm thickness. Anterior/fundal subserosal fibroid measures 4.2 x 4.1 x 3.9 cm. Right ovary is normal and measures 2.0 x 1.8 x 1.6 cm. Left ovary measures 3.4 x 2.8 x 3.0 cm and includes complex 2.4 centimeter cyst. No pelvic fluid or adnexal mass lesion. Impression: 1. Heterogeneous enlarged uterus with subserosal fibroid identified. Previously identified smaller fibroids are not well visualized on current examination. 2. Complex left ovarian cyst likely physiologic.
== END ==
LOC: M WHC 09:26
PROVIDERS: ATTEND Specialist
DX: D21.9 Benign neoplasm of connective and other soft tissue, unspecified (principal)

== ENCOUNTER → 2019-09-02 | Outpatient (CLI) | payer OTHER ==
--- NOTE | 2019-09-02 13:18 | REPMRS ---
Patient History No known family history of cancer. Taking hormonal contraceptives for 3 months. The patient states she has not had a clinical breast exam in over a year. Digital Woman Screen Mammo: September 02, 2019 - Exam #: [id number] Bilateral CC and MLO view(s) were taken. Technologist: RT Rut Prior study comparison: January 08, 2018, bilateral digital mammo screening bilat, performed at [facility]. October 26, 2015, digital woman screen mammo performed at [facility]. February 25, 2013, bilateral digital woman screen mammo, performed at [facility], [place]. FINDINGS: The breast tissue is heterogeneously dense. This may lower the sensitivity of mammography. There is a moderate amount of heterogeneously dense fibroglandular tissue which is fairly symmetric. There is no interval development of dominant mass, architectural distortion, or grouped microcalcification typical of malignancy. There has been no change in the appearance of the mammogram from the prior studies. 3-D tomosynthesis shows no additional findings. Assessment: BI-RADS/ACR category 1 mammogram. Negative Mammogram. Recommendation Routine screening mammogram of both breasts in 1 year (for women over age 40). This patient's Lifetime Breast Cancer RIsk is estimated at 8.1 %. This mammogram was interpreted with the aid of an FDA-approved computer-aided dectection system. Electronically Signed By: Juan Hughes MD 09/02/19 [id number]
== END ==
LOC: M WHC 10:48
PROVIDERS: ATTEND Specialist
DX: Z12.31 Encounter for screening mammogram for malignant neoplasm of breast (principal)

== ENCOUNTER → 2020-01-08 | Outpatient (REF) | payer OTHER ==
[2020-01-08 13:50] LABS: ALBUMIN 3.8 GM/DL (3.2-5.2); ALT/SGPT 38 U/L (12-78); BILIRUBIN,TOTAL 0.6 MG/DL (0.2-1.0); BLOOD UREA NITROGEN 10 MG/DL (7-18); CARBON DIOXIDE LEVEL 29 MEQ/L (21-32); CHLORIDE LEVEL 105 MEQ/L (98-107); CHOLESTEROL LEVEL 233 MG/DL (<200); CHOLESTEROL RISK RATIO 5.418 (<5); CREATININE FOR GFR 0.86 MG/DL (0.55-1.30); GLOMERULAR FILTRATION RATE > 60.0 (>51); GLUCOSE, FASTING 126 MG/DL (70-100); HDL CHOLESTEROL 43 MG/DL (>40); LDL CHOLESTEROL 163 MG/DL (<100); NON-HDL-C 190 MG/DL; POTASSIUM SERUM 3.8 MEQ/L (3.5-5.1); SODIUM LEVEL 139 MEQ/L (136-145); TOTAL PROTEIN 7.5 GM/DL (6.4-8.2); TRIGLYCERIDES LEVEL 136 MG/DL (<150)
== END ==
LOC: M PLALAB 10:49
PROVIDERS: ATTEND Nurse Practitioner Family
DX: I10 Essential (primary) hypertension (principal); E78.5 Hyperlipidemia, unspecified; F43.21 Adjustment disorder with depressed mood

== ENCOUNTER → 2020-06-13 | Outpatient (CLI) | payer OTHER ==
[~2020-06-13] MED LIST changes: -LISI-538 PO; +LISI20TA33 PO
[2020-06-17 00:09] LABS: D001-IgE D pteronyssinus <0.10 kU/L (Class 0); E001-IgE Cat Epith/Dander < 0.10 kU/L (Class 0); E003-IGE HORSE EPITHELIA/DAND <0.10 kU/L (Class 0); E004-IGE COW DANDER <0.10 kU/L (Class 0); E005-IgE Dog Dander < 0.10 kU/L (Class 0); F001-IGE EGG WHITE <0.10 kU/L (Class 0); F002-IgE Milk < 0.10 kU/L (Class 0); F004-IgE Wheat < 0.10 kU/L (Class 0); F013-IgE Peanut < 0.10 kU/L (Class 0); F014-IgE Soybean < 0.10 kU/L (Class 0); F020-IGE ALMOND <0.10 kU/L (Class 0); F024-IgE Shrimp <0.10 kU/L (Class 0); F026-IgE Pork < 0.10 kU/L (Class 0); F027-IgE Beef < 0.10 kU/L (Class 0); F075-IGE EGG YOLK <0.10 kU/L (Class 0); F245-IgE Egg, Whole < 0.10 kU/L (Class 0); F338-IgE Oyster <0.10 kU/L (Class 0); F338-IgE Scallop <0.10 kU/L (Class 0); FX02-IgE Food Mix (Sea Foods) Negative (.); G002-IgE Bermuda Grass < 0.10 kU/L (Class 0); G008-IgE Kentucky Bluegrass < 0.10 kU/L (Class 0); M001-IgE Penicillium chrysogen < 0.10 kU/L (Class 0); M002 IgE Cladosporium herbaru < 0.10 kU/L (Class 0); M003 IgE Aspergillus fumigatu < 0.10 kU/L (Class 0); M006-IgE Alternaria alternata < 0.10 kU/L (Class 0); T001-IgE Maple/Box Elder < 0.10 kU/L (Class 0); T003-IgE Common Silver Birch < 0.10 kU/L (Class 0); T006-IgE Cedar, Mountain < 0.10 kU/L (Class 0); T007-IgE Oak, White < 0.10 kU/L (Class 0); T008-IgE Elm, American < 0.10 kU/L (Class 0); T015-IgE Ash, White < 0.10 kU/L (Class 0); T041-IgE Hickory, White < 0.10 kU/L (Class 0); T070-IgE White Mulberry < 0.10 kU/L (Class 0); W001-IgE Ragweed, Short < 0.10 kU/L (Class 0); W009-IgE Plantain, English < 0.10 kU/L (Class 0); W014-IgE Pigweed, Rough < 0.10 kU/L (Class 0); W018-IgE Sheep Sorrel < 0.10 kU/L (Class 0)
== END ==
LOC: M PLALAB 11:32
PROVIDERS: ATTEND Nurse Practitioner Family
DX: L50.8 Other urticaria (principal); J30.2 Other seasonal allergic rhinitis; Z91.012 Allergy to eggs; Z91.013 Allergy to seafood

== ENCOUNTER → 2020-06-13 | Outpatient (REF) | payer OTHER ==
[~2020-06-13] MED LIST changes: +LISI-538 PO; -LISI20TA33 PO
[2020-06-13 16:33] LABS: HEMATOCRIT 43.4 % (36.0-47.0); HEMOGLOBIN 13.9 g/dl (12.0-15.5); MEAN CORPUSCULAR HEMOGLOBIN 27.8 pg (27.0-33.0); MEAN CORPUSCULAR VOLUME 86.8 fl (80.0-96.0); PLATELET COUNT, AUTOMATED 272 10^3/uL (150-450)
== END ==
LOC: M PLALAB 11:31
PROVIDERS: ATTEND Specialist
DX: N92.1 Excessive and frequent menstruation with irregular cycle (principal); D21.9 Benign neoplasm of connective and other soft tissue, unspecified

== ENCOUNTER → 2020-06-28 | Outpatient (CLI) | payer OTHER ==
--- NOTE | 2020-06-28 11:30 | REP ---
INDICATION: D21.9 FIBROIDS COMPARISON: None. TECHNIQUE: Transabdominal pelvic ultrasound with color evaluation. FINDINGS: Bladder is collapsed. Heterogeneous anteverted uterus measures 11.2 x 5.7 x 8.0 cm and includes 3.0 x 3.0 x 2.7 cm anterior subserosal fibroid. The endometrial complex measures 3.9 mm thickness. Right ovary measures 2.3 x 1.5 x 1.5 cm. Left ovary measures 3.5 x 2.1 x 3.3 cm with 2.3 x 2.2 x 2.6 cm cyst. No pelvic fluid or adnexal mass lesion IMPRESSION: 3 cm anterior subserosal fibroid. <Electronically signed by Kevin Mcgrath > 06/28/20 [id number]
== END ==
LOC: M WHC 10:43
PROVIDERS: ATTEND Specialist
DX: D21.9 Benign neoplasm of connective and other soft tissue, unspecified (principal)

== ENCOUNTER → 2020-10-13 | Outpatient (REF) | payer OTHER ==
[~2020-10-13] MED LIST changes: +ASPI-569 PO; -ASPI81TAEC PO; -LISI-538 PO; +LISI20TA33 PO
== END ==
LOC: M SFHCWAGY 15:06
PROVIDERS: ATTEND Specialist
DX: Z12.4 Encounter for screening for malignant neoplasm of cervix (principal)

== ENCOUNTER → 2021-09-26 | Outpatient (CLI) | payer OTHER ==
[~2021-09-26] MED LIST changes: -KLOR10TA76 PO; +POTA-136 PO
[2021-09-26 13:35] LABS: BASO % 0.5 % (0.0-1.0); EOS # 0.1 10^3/uL (0.0-0.5); EOS % 0.8 % (0.0-3.0); HEMATOCRIT 46.4 % (36.0-47.0); HEMOGLOBIN 14.8 g/dl (12.0-15.5); LYMPH # 2.1 10^3/uL (1.5-5.0); LYMPH % 31.9 % (24.0-44.0); MEAN CORPUSCULAR HEMOGLOBIN 27.5 pg (27.0-33.0); MEAN CORPUSCULAR HGB CONC 31.9 g/dl (32.0-36.5); MEAN CORPUSCULAR VOLUME 86.2 fl (80.0-96.0); MONO # 0.5 10^3/uL (0.0-0.8); MONO % 6.8 % (2.0-8.0); NEUTROPHILS # 3.9 10^3/uL (1.5-8.5); NEUTROPHILS % 59.5 % (36.0-66.0); PLATELET COUNT, AUTOMATED 276 10^3/uL (150-450); RED BLOOD COUNT 5.38 10^6/uL (4.00-5.40); WHITE BLOOD COUNT 6.6 10^3/uL (4.0-10.0)
[2021-09-26 14:13] LABS: ALBUMIN 3.9 GM/DL (3.2-5.2); ALT/SGPT 35 U/L (12-78); BILIRUBIN,TOTAL 0.5 MG/DL (0.2-1.0); BLOOD UREA NITROGEN 10 MG/DL (7-18); CALCIUM LEVEL 9.6 MG/DL (8.5-10.1); CARBON DIOXIDE LEVEL 32 MEQ/L (21-32); CHLORIDE LEVEL 101 MEQ/L (98-107); CHOLESTEROL LEVEL 281 MG/DL (<200); CHOLESTEROL RISK RATIO 5.978 (<5); CREATININE FOR GFR 0.85 MG/DL (0.55-1.30); FREE T4 1.18 NG/DL (0.76-1.46); GLOMERULAR FILTRATION RATE > 60.0 (>51); GLUCOSE, FASTING 124 MG/DL (70-100); HDL CHOLESTEROL 47 MG/DL (>40); LDL CHOLESTEROL 202 MG/DL (<100); NON-HDL-C 234 MG/DL; POTASSIUM SERUM 3.4 MEQ/L (3.5-5.1); SODIUM LEVEL 137 MEQ/L (136-145); TOTAL PROTEIN 7.5 GM/DL (6.4-8.2); TRIGLYCERIDES LEVEL 159 MG/DL (<150)
== END ==
LOC: M PLALAB 09:56
PROVIDERS: ATTEND Physician Assistant
DX: E78.5 Hyperlipidemia, unspecified (principal); I10 Essential (primary) hypertension; R73.03 Prediabetes

== ENCOUNTER → 2021-10-25 | Outpatient (CLI) | payer OTHER | LOC: M PLALAB 09:53 | PROVIDERS: ATTEND Physician Assistant | DX: M67.471 Ganglion, right ankle and foot (principal) ==

== ENCOUNTER → 2021-11-14 | Outpatient (REF) | payer OTHER | LOC: M SFHCWAGY 17:19 | PROVIDERS: ATTEND Specialist | DX: Z12.4 Encounter for screening for malignant neoplasm of cervix (principal) ==

== ENCOUNTER → 2022-01-04 | Outpatient (CLI) | payer OTHER | LOC: M RAD 16:27 | PROVIDERS: ATTEND Internal Medicine Nephrology | DX: I70.1 Atherosclerosis of renal artery (principal); I10 Essential (primary) hypertension; Z53.8 Procedure and treatment not carried out for other reasons ==

== ENCOUNTER 2022-04-17 16:28 | Emergency (ER) | payer OTHER ==
[~2022-04-17] VITALS: Ht 170.2 cm; Wt 78.6 kg
[2022-04-17 16:45] VITALS: BP 212/112
[2022-04-17] MEDS ORDERED: VENL75CA47 (17:23)
== END 2022-04-17 21:58 | disposition left against medical advice (07) ==
LOC: M ED 16:28
DX: Z53.21 Procedure and treatment not carried out due to patient leaving prior to being seen by health care provider (principal)

== ENCOUNTER → 2022-04-19 | Outpatient (CLI) | payer OTHER ==
[~2022-04-19] MED LIST changes: +VENL75CA47
== END ==
LOC: M RAD 09:39 → M PLAIMG 09:39
PROVIDERS: ATTEND Physician Assistant
DX: S06.0X0A Concussion without loss of consciousness, initial encounter (principal); S16.1XXA Strain of muscle, fascia and tendon at neck level, initial encounter; S39.012A Strain of muscle, fascia and tendon of lower back, initial encounter; S70.12XA Contusion of left thigh, initial encounter

== ENCOUNTER → 2022-05-23 | Outpatient (REF) | payer OTHER | LOC: M PLALAB 13:23 | PROVIDERS: ATTEND Nurse Practitioner Family | DX: Z11.3 Encounter for screening for infections with a predominantly sexual mode of transmission (principal); N92.6 Irregular menstruation, unspecified; N93.9 Abnormal uterine and vaginal bleeding, unspecified; Z53.9 Procedure and treatment not carried out, unspecified reason ==

== ENCOUNTER → 2022-07-26 | Outpatient (CLI) | payer OTHER | LOC: M WHC 15:12 | PROVIDERS: ATTEND Physician Assistant | DX: N63.31 Unspecified lump in axillary tail of the right breast (principal); R22.31 Localized swelling, mass and lump, right upper limb ==

== ENCOUNTER → 2022-08-22 | Outpatient (REF) | payer OTHER ==
[2022-08-22 16:41] LABS: BASO % 0.4 % (0.0-1.0); EOS # 0.1 10^3/uL (0.0-0.5); HEMATOCRIT 46.3 % (36.0-47.0); LYMPH # 2.2 10^3/uL (1.5-5.0); LYMPH % 27.2 % (24.0-44.0); MEAN CORPUSCULAR HGB CONC 32.4 g/dl (32.0-36.5); MEAN CORPUSCULAR VOLUME 89.4 fl (80.0-96.0); MONO # 0.4 10^3/uL (0.0-0.8); MONO % 5.1 % (2.0-8.0); NEUTROPHILS # 5.3 10^3/uL (1.5-8.5); NEUTROPHILS % 65.7 % (36.0-66.0); PLATELET COUNT, AUTOMATED 224 10^3/uL (150-450); RED BLOOD COUNT 5.18 10^6/uL (4.00-5.40); WHITE BLOOD COUNT 8.1 10^3/uL (4.0-10.0)
[2022-08-22 17:02] LABS: CREATININE, URINE 100.6 MG/DL; MAU/CREAT RATIO 268.3 MCG/MG (0.0-30.0)
[2022-08-22 17:35] LABS: ALBUMIN 3.7 G/DL (3.2-5.2); ALKALINE PHOSPHATASE 73 U/L (46-116); ALT/SGPT 32 U/L (7.0-40); BILIRUBIN,TOTAL 0.4 MG/DL (0.3-1.2); BLOOD UREA NITROGEN 15 MG/DL (9-23); CALCIUM LEVEL 9.6 MG/DL (8.5-10.1); CARBON DIOXIDE LEVEL 30 MMOL/L (20-31); CHLORIDE LEVEL 98 MMOL/L (98-107); CHOLESTEROL LEVEL 252 MG/DL (<200); CHOLESTEROL RISK RATIO 4.59 (<5); CREATININE FOR GFR 0.85 MG/DL (0.55-1.30); GLOMERULAR FILTRATION RATE > 60.0 (>51); GLUCOSE, FASTING 173 MG/DL (60-100); HDL CHOLESTEROL 54.8 MG/DL (>40); NON-HDL-C 197 MG/DL; POTASSIUM SERUM 3.5 MMOL/L (3.5-5.1); SODIUM LEVEL 134 MMOL/L (136-145); VITAMIN B12 LEVEL 452 PG/ML (211-911)
[2022-08-22 17:51] LABS: HEMOGLOBIN A1c 6.7 % (4.0-6.0)
[2022-08-22 19:37] LABS: AST/SGOT 29 U/L (<34); LDL CHOLESTEROL 161.2 MG/DL (<100); TRIGLYCERIDES LEVEL 180 MG/DL (<150)
== END ==
LOC: M SFHCADAM 14:45
PROVIDERS: ATTEND Physician Assistant
DX: E78.5 Hyperlipidemia, unspecified (principal); I10 Essential (primary) hypertension; R73.03 Prediabetes; E89.0 Postprocedural hypothyroidism; I70.1 Atherosclerosis of renal artery

== ENCOUNTER → 2022-09-12 | Outpatient (CLI) | payer OTHER | LOC: M WHC 08:15 | PROVIDERS: ATTEND Specialist | DX: Z12.31 Encounter for screening mammogram for malignant neoplasm of breast (principal); D25.9 Leiomyoma of uterus, unspecified; Z97.5 Presence of (intrauterine) contraceptive device ==

== ENCOUNTER → 2022-09-13 | Outpatient (REF) | payer OTHER ==
[2022-09-13 15:40] LABS: FREE T4 1.45 NG/DL (0.89-1.76); THYROID STIMULATING HORMONE 1.129 uIU/ML (0.55-4.78)
== END ==
LOC: M SFHCADAM 08:47
PROVIDERS: ATTEND Physician Assistant
DX: E89.0 Postprocedural hypothyroidism (principal)

== ENCOUNTER → 2022-09-24 | Outpatient (REF) | payer OTHER | LOC: M SFHCWAGY 13:06 | PROVIDERS: ATTEND Specialist | DX: N92.6 Irregular menstruation, unspecified (principal) ==

== ENCOUNTER → 2022-10-05 | Outpatient (CLI) | payer OTHER | LOC: M CARPUL 07:56 | PROVIDERS: ATTEND Physician Assistant | DX: L11.9 Acantholytic disorder, unspecified (principal); I08.3 Combined rheumatic disorders of mitral, aortic and tricuspid valves ==

== ENCOUNTER → 2023-02-04 | Outpatient (CLI) | payer OTHER | LOC: M RAD 08:10 | PROVIDERS: ATTEND Internal Medicine Nephrology | DX: I70.1 Atherosclerosis of renal artery (principal); I10 Essential (primary) hypertension; N28.1 Cyst of kidney, acquired ==

== ENCOUNTER → 2023-04-18 | Outpatient (REF) | payer OTHER ==
[2023-04-18 14:14] LABS: BASO % 0.3 % (0.0-1.0); EOS # 0.1 10^3/uL (0.0-0.5); EOS % 0.9 % (0.0-3.0); HEMATOCRIT 50.4 % (36.0-47.0); HEMOGLOBIN 16.4 g/dl (12.0-15.5); LYMPH # 2.2 10^3/uL (1.5-5.0); LYMPH % 27.8 % (24.0-44.0); MEAN CORPUSCULAR HEMOGLOBIN 28.6 pg (27.0-33.0); MEAN CORPUSCULAR HGB CONC 32.5 g/dl (32.0-36.5); MEAN CORPUSCULAR VOLUME 87.8 fl (80.0-96.0); MONO # 0.5 10^3/uL (0.0-0.8); MONO % 6.1 % (2.0-8.0); NEUTROPHILS # 5.1 10^3/uL (1.5-8.5); NEUTROPHILS % 64.3 % (36.0-66.0); PLATELET COUNT, AUTOMATED 242 10^3/uL (150-450); RED BLOOD COUNT 5.74 10^6/uL (4.00-5.40); WHITE BLOOD COUNT 7.9 10^3/uL (4.0-10.0)
== END ==
LOC: M SFHCADAM 08:05
PROVIDERS: ATTEND Physician Assistant
DX: J01.10 Acute frontal sinusitis, unspecified (principal); I15.0 Renovascular hypertension; E11.9 Type 2 diabetes mellitus without complications; E78.2 Mixed hyperlipidemia; E89.0 Postprocedural hypothyroidism; E55.9 Vitamin D deficiency, unspecified

== ENCOUNTER → 2023-08-28 | Outpatient (REF) | payer OTHER ==
[2023-08-28 14:53] LABS: HEMOGLOBIN A1c 6.8 % (4.0-6.0)
== END ==
LOC: M SFHCADAM 13:53
PROVIDERS: ATTEND Physician Assistant
DX: E11.9 Type 2 diabetes mellitus without complications (principal)

== ENCOUNTER → 2023-09-30 | Outpatient (CLI) | payer OTHER | LOC: M RAD 14:42 | PROVIDERS: ATTEND Physician Assistant Medical | DX: Z85.850 Personal history of malignant neoplasm of thyroid (principal); E04.2 Nontoxic multinodular goiter ==

== ENCOUNTER → 2023-12-17 | Outpatient (REF) | payer OTHER ==
[~2023-12-17] MED LIST changes: +EPIP0.3I2 IM; +FLON1SPR; +SYNT125T PO; +VENL75CA2 PO
== END ==
LOC: M SFHCDERM 17:30
PROVIDERS: ATTEND Nurse Practitioner Family
DX: L70.8 Other acne (principal)

== ENCOUNTER 2023-12-25 07:12 | Day surgery (SDC) | payer OTHER ==
[~2023-12-25] VITALS: Ht 170.2 cm; Wt 76.4 kg
[2023-12-25] MEDS: NS 1,000 ML IV ONE (07:42)
[2023-12-25] MEDS ORDERED: propofoL 200 MG/20 ML VIAL As Ordered ONE (08:21)
[2023-12-25] MEDS ORDERED: LABETALOL 100MG/20ML VIAL As Ordered ONE (08:30)
[2023-12-25 08:46] VITALS: TEMP 98.6
[2023-12-25 09:15] VITALS: BP 183/109; O2SAT 96
== END 2023-12-25 09:30 | disposition home or self-care (01) ==
LOC: M OPP 07:12
PROVIDERS: ATTEND Surgery
DX: Z12.11 Encounter for screening for malignant neoplasm of colon (principal); Z80.0 Family history of malignant neoplasm of digestive organs; D12.6 Benign neoplasm of colon, unspecified; F17.200 Nicotine dependence, unspecified, uncomplicated; I10 Essential (primary) hypertension; E03.9 Hypothyroidism, unspecified; Z79.52 Long term (current) use of systemic steroids; Z79.890 Hormone replacement therapy; Z79.899 Other long term (current) drug therapy; Z91.013 Allergy to seafood; Z91.040 Latex allergy status; Z88.2 Allergy status to sulfonamides; Z88.8 Allergy status to other drugs, medicaments and biological substances
CPT/HCPCS: 45380; 88305; J1920

== ENCOUNTER → 2024-01-24 | Outpatient (CLI) | payer OTHER ==
[2024-01-24 14:49] LABS: CHOLESTEROL RISK RATIO 5.12 (<5); HDL CHOLESTEROL 50.1 MG/DL (>40); LDL CHOLESTEROL 172.5 MG/DL (<100); NON-HDL-C 206.9 MG/DL
[2024-01-24 14:52] LABS: FREE T4 1.36 NG/DL (0.89-1.76); THYROID STIMULATING HORMONE 1.365 uIU/ML (0.55-4.78)
== END ==
LOC: M LAB 13:40
PROVIDERS: ATTEND Physician Assistant
DX: E78.5 Hyperlipidemia, unspecified (principal); I10 Essential (primary) hypertension; E89.0 Postprocedural hypothyroidism; E11.9 Type 2 diabetes mellitus without complications

== ENCOUNTER → 2024-01-27 | Outpatient (REF) | payer OTHER ==
[2024-01-27 18:03] LABS: BASO % 0.4 % (0.0-1.0); EOS % 0.4 % (0.0-3.0); HEMATOCRIT 45.6 % (36.0-47.0); HEMOGLOBIN 15.1 g/dl (12.0-15.5); LYMPH # 2.3 10^3/uL (1.5-5.0); LYMPH % 34.5 % (24.0-44.0); MEAN CORPUSCULAR HEMOGLOBIN 29.1 pg (27.0-33.0); MEAN CORPUSCULAR HGB CONC 33.1 g/dl (32.0-36.5); MEAN CORPUSCULAR VOLUME 87.9 fl (80.0-96.0); MONO # 0.4 10^3/uL (0.0-0.8); MONO % 5.7 % (2.0-8.0); NEUTROPHILS # 3.9 10^3/uL (1.5-8.5); NEUTROPHILS % 58.4 % (36.0-66.0); PLATELET COUNT, AUTOMATED 216 10^3/uL (150-450); RED BLOOD COUNT 5.19 10^6/uL (4.00-5.40); WHITE BLOOD COUNT 6.7 10^3/uL (4.0-10.0)
[2024-01-27 18:24] LABS: HEMOGLOBIN A1c 6.8 % (4.0-6.0)
[2024-01-27 18:34] LABS: ALKALINE PHOSPHATASE 78 U/L (46-116); ALT/SGPT 25 U/L (7.0-40); AST/SGOT 15 U/L (<34); BILIRUBIN,TOTAL 0.4 MG/DL (0.3-1.2); BLOOD UREA NITROGEN 13 MG/DL (9-23); CALCIUM LEVEL 9.7 MG/DL (8.5-10.1); CARBON DIOXIDE LEVEL 30 MMOL/L (20-31); CHLORIDE LEVEL 101 MMOL/L (98-107); CREATININE FOR GFR 0.91 MG/DL (0.55-1.30); GLOMERULAR FILTRATION RATE > 60.0 (>51); GLUCOSE, FASTING 101 MG/DL (60-100); POTASSIUM SERUM 3.4 MMOL/L (3.5-5.1); SODIUM LEVEL 134 MMOL/L (136-145)
== END ==
LOC: M SFHCADAM 11:53
PROVIDERS: ATTEND Physician Assistant
DX: I11.9 Hypertensive heart disease without heart failure (principal); E11.9 Type 2 diabetes mellitus without complications; I70.1 Atherosclerosis of renal artery; E89.0 Postprocedural hypothyroidism; F17.210 Nicotine dependence, cigarettes, uncomplicated; E78.5 Hyperlipidemia, unspecified; F32.9 Major depressive disorder, single episode, unspecified; K21.9 Gastro-esophageal reflux disease without esophagitis

== ENCOUNTER → 2024-03-26 | Outpatient (REF) | payer OTHER ==
[2024-03-26 19:15] LABS: CREATININE FOR GFR 1.17 MG/DL (0.55-1.30); GLOMERULAR FILTRATION RATE 50.9 (>51); POTASSIUM SERUM 3.7 MMOL/L (3.5-5.1)
== END ==
LOC: M LABDRWAD 17:17
PROVIDERS: ATTEND Internal Medicine Cardiovascular Disease
DX: I10 Essential (primary) hypertension (principal)

== ENCOUNTER → 2024-07-29 | Outpatient (CLI) | payer OTHER ==
[2024-07-29 10:14] LABS: ALBUMIN 3.9 G/DL (3.2-5.2); BILIRUBIN,TOTAL 0.4 MG/DL (0.3-1.2); CALCIUM LEVEL 9.5 MG/DL (8.5-10.1); CHOLESTEROL RISK RATIO 4.15 (<5); CREATININE FOR GFR 1.14 MG/DL (0.55-1.30); GLOMERULAR FILTRATION RATE 52.5 (>51); HDL CHOLESTEROL 50.8 MG/DL (>40); LDL CHOLESTEROL 129.8 MG/DL (<100); MAGNESIUM LEVEL 1.9 MG/DL (1.8-2.4); NON-HDL-C 160.2 MG/DL; POTASSIUM SERUM 4.2 MMOL/L (3.5-5.1); TOTAL PROTEIN 7.4 G/DL (5.7-8.2)
== END ==
LOC: M LAB 08:49
PROVIDERS: ATTEND Internal Medicine Cardiovascular Disease
DX: I10 Essential (primary) hypertension (principal); E78.5 Hyperlipidemia, unspecified

== ENCOUNTER → 2024-09-17 | Outpatient (CLI) | payer OTHER | LOC: M WHC 10:04 | PROVIDERS: ATTEND Physician Assistant | DX: R10.811 Right upper quadrant abdominal tenderness (principal); R16.0 Hepatomegaly, not elsewhere classified; K80.20 Calculus of gallbladder without cholecystitis without obstruction ==

== ENCOUNTER → 2024-09-17 | Outpatient (CLI) | payer OTHER | LOC: M WHC 08:58 | PROVIDERS: ATTEND Specialist | DX: Z12.31 Encounter for screening mammogram for malignant neoplasm of breast (principal); R92.333 Mammographic heterogeneous density, bilateral breasts ==

== ENCOUNTER → 2024-09-17 | Outpatient (REF) | payer OTHER | LOC: M SFHCWAGY 13:22 | PROVIDERS: ATTEND Specialist | DX: Z12.4 Encounter for screening for malignant neoplasm of cervix (principal); R87.613 High grade squamous intraepithelial lesion on cytologic smear of cervix (HGSIL) ==

== ENCOUNTER 2024-10-19 08:27 | Day surgery (SDC) | payer OTHER ==
[~2024-10-19] VITALS: Ht 170.2 cm; Wt 81.1 kg
[~2024-10-19 08:27] MED LIST changes: +AMLO1TAB24 PO; +FAMO1TAB11 PO; +LISI40TA4 PO; +OMEP40CA5 PO; +PRAV40TA2 PO; +ROSU20TA86 PO; +SPIR-10 PO; +SYNT100T PO
[2024-10-19] MEDS ORDERED: fentaNYL 100 MCG/2 ML INJECTION As Ordered ONE (09:23)
[2024-10-19] MEDS ORDERED: LIDOCAINE 2% 100MG/5ML SDV (FOR ANES.) As Ordered ONE (09:23)
[2024-10-19] MEDS ORDERED: propofoL 200 MG/20 ML VIAL As Ordered ONE (09:23)
[2024-10-19] MEDS ORDERED: LABETALOL 100MG/20ML VIAL As Ordered ONE (09:54)
[2024-10-19] MEDS ORDERED: ONDANSETRON 4MG 2ML VIAL As Ordered ONE (09:58)
[2024-10-19 10:11] VITALS: TEMP 98.1
[2024-10-19 10:20] VITALS: BP 139/88; O2SAT 97
== END 2024-10-19 10:30 | disposition home or self-care (01) ==
LOC: M OPP 08:27
PROVIDERS: ATTEND Internal Medicine Gastroenterology
DX: K44.9 Diaphragmatic hernia without obstruction or gangrene (principal); R12 Heartburn; Z88.2 Allergy status to sulfonamides; Z91.012 Allergy to eggs; Z91.013 Allergy to seafood; Z91.040 Latex allergy status; Z91.048 Other nonmedicinal substance allergy status; Z79.51 Long term (current) use of inhaled steroids; Z79.899 Other long term (current) drug therapy; F17.210 Nicotine dependence, cigarettes, uncomplicated
CPT/HCPCS: 43239; 88305; J1920; J2405; J3010

== ENCOUNTER → 2024-10-22 | Outpatient (REF) | payer OTHER | LOC: M SFHCADAM 13:01 | PROVIDERS: ATTEND Physician Assistant | DX: A60.00 Herpesviral infection of urogenital system, unspecified (principal); L08.9 Local infection of the skin and subcutaneous tissue, unspecified ==

== ENCOUNTER → 2024-10-25 | Outpatient (CLI) | payer OTHER ==
[2024-10-25 10:32] LABS: BASO % 0.4 % (0.0-1.0); EOS # 0.1 10^3/uL (0.0-0.5); EOS % 1.2 % (0.0-3.0); HEMATOCRIT 43.3 % (36.0-47.0); HEMOGLOBIN 14.1 g/dl (12.0-15.5); LYMPH # 2.1 10^3/uL (1.5-5.0); LYMPH % 27.2 % (24.0-44.0); MEAN CORPUSCULAR HEMOGLOBIN 28.7 pg (27.0-33.0); MEAN CORPUSCULAR HGB CONC 32.6 g/dl (32.0-36.5); MEAN CORPUSCULAR VOLUME 88.2 fl (80.0-96.0); MONO # 0.5 10^3/uL (0.0-0.8); MONO % 6.1 % (2.0-8.0); NEUTROPHILS # 4.9 10^3/uL (1.5-8.5); NEUTROPHILS % 64.3 % (36.0-66.0); PLATELET COUNT, AUTOMATED 249 10^3/uL (150-450); RED BLOOD COUNT 4.91 10^6/uL (4.00-5.40); WHITE BLOOD COUNT 7.6 10^3/uL (4.0-10.0)
[2024-10-25 11:06] LABS: BILIRUBIN,TOTAL 0.3 MG/DL (0.3-1.2); CALCIUM LEVEL 9.7 MG/DL (8.5-10.1); GLOMERULAR FILTRATION RATE 65.7 (>51); TOTAL PROTEIN 7.3 G/DL (5.7-8.2)
== END ==
LOC: EEVIPCON 10:08 → M LAB 10:08
PROVIDERS: ATTEND Physician Assistant
DX: A60.00 Herpesviral infection of urogenital system, unspecified (principal); L03.311 Cellulitis of abdominal wall; L08.9 Local infection of the skin and subcutaneous tissue, unspecified

== ENCOUNTER → 2025-02-08 | Outpatient (CLI) | payer OTHER ==
[~2025-02-08] MED LIST changes: +LISI40TA10 PO; -LISI40TA4 PO; -PRAV40TA2 PO; +PRAV40TA85 PO
[2025-02-08 10:13] LABS: BASO # 0.0 10^3/uL (0.0-0.2); BASO % 0.3 % (0.0-1.0); EOS # 0.1 10^3/uL (0.0-0.5); EOS % 0.9 % (0.0-3.0); LYMPH # 1.7 10^3/uL (1.5-5.0); LYMPH % 25.3 % (24.0-44.0); MONO # 0.5 10^3/uL (0.0-0.8); MONO % 7.1 % (2.0-8.0); NEUTROPHILS # 4.4 10^3/uL (1.5-8.5); NEUTROPHILS % 65.5 % (36.0-66.0); PLATELET COUNT, AUTOMATED 244 10^3/uL (150-450)
[2025-02-08 10:37] LABS: FREE T4 1.38 NG/DL (0.89-1.76)
[2025-02-08 10:38] LABS: ALT/SGPT 26.0 U/L (7.0-40); AST/SGOT 20.0 U/L (<34); CALCIUM LEVEL 10.1 MG/DL (8.5-10.1); CARBON DIOXIDE LEVEL 26.0 MMOL/L (20-31); CHLORIDE LEVEL 104.0 MMOL/L (98-107); CHOLESTEROL LEVEL 276.0 MG/DL (<200); CHOLESTEROL RISK RATIO 5.88 (<5); CREATININE FOR GFR 1.06 MG/DL (0.55-1.30); GLOMERULAR FILTRATION RATE 61.3 (>51); LDL CHOLESTEROL 180.7 MG/DL (<100); NON-HDL-C 229.1 MG/DL; POTASSIUM SERUM 3.8 MMOL/L (3.5-5.1); SODIUM LEVEL 139.0 MMOL/L (136-145); TRIGLYCERIDES LEVEL 242.0 MG/DL (<150)
[2025-02-08 10:39] LABS: TOTAL 25(OH) VITAMIN D 31.4 NG/ML (20.0-100.0)
[2025-02-08 10:54] LABS: ESTIMATED AVERAGE GLUCOSE 163.0 MG/DL (60-110)
[2025-02-09 15:46] LABS: ALMOND IGE FOOD < 0.10 kU/L (<0.10); BRAZIL NUT CLASS IGE <0.10 ABSENT (<0.10); BRAZIL NUT IGE < 0.10 kU/L (<0.10); CASHEW NUT IGE FOOD < 0.10 kU/L (<0.10); CODFISH IGE FOOD < 0.10 kU/L (<0.10); COWS MILK FOOD < 0.10 kU/L (<0.10); EGG WHITE FOOD < 0.1 kU/L (<0.10); HAZELNUT IGE FOOD < 0.10 kU/L (<0.10); MACADAMIA NUT CLASS IGE <0.10 ABSENT (<0.10); PEANUT IGE FOOD < 0.10 kU/L (<0.10); SALMON IGE FOOD < 0.10 kU/L (<0.10); SCALLOP IGE FOOD < 0.10 kU/L (<0.10); SESAME SEED IGE FOOD < 0.10 kU/L (<0.10); SHRIMP IGE FOOD < 0.10 kU/L (<0.10); SOYBEAN IGE FOOD < 0.10 kU/L (<0.10); TUNA IGE FOOD < 0.10 kU/L (<0.10); WALNUT IGE FOOD < 0.10 kU/L (<0.10); WHEAT IGE FOOD < 0.10 kU/L (<0.10)
== END ==
LOC: M LAB 08:45
PROVIDERS: ATTEND Physician Assistant
DX: I11.9 Hypertensive heart disease without heart failure (principal); E66.3 Overweight; Z68.28 Body mass index [BMI] 28.0-28.9, adult; K90.49 Malabsorption due to intolerance, not elsewhere classified; E89.0 Postprocedural hypothyroidism; E78.2 Mixed hyperlipidemia; E55.9 Vitamin D deficiency, unspecified

== ENCOUNTER → 2025-02-11 | Outpatient (REF) | payer OTHER | LOC: M PLALAB 15:08 | PROVIDERS: ATTEND Specialist | DX: R87.613 High grade squamous intraepithelial lesion on cytologic smear of cervix (HGSIL) (principal) ==